=== PATIENT | male | born 1990 | race African-American/Black ===

== ENCOUNTER 2018-10-13 10:09 | Emergency (ER) | payer OTHER ==
[~2018-10-13] VITALS: Ht 172.7 cm; Wt 65.1 kg
[2018-10-13] MEDS ORDERED: KETOROLAC 30 MG/1 ML IM ONE (11:00)
--- NOTE | 2018-10-13 11:08 | NUR ---
PT TO ROOM FROM LOBBY, TO ED WITH BACK PAIN AFTER LIFTING CARSEAT OUT OF CAR, HAS HX OF LBP. PT PLACED ON MONITOR, CALL LIGHT WITHIN REACH
[2018-10-13] MEDS ORDERED: KETOROLAC 30 MG/1 ML ONE (11:15)
[2018-10-13 11:35] LABS: MICROSCOPIC NOT IND
[2018-10-13 11:37] LABS: CULTURE INDICATED? NO
[2018-10-13 12:10] VITALS: BP 115/50
== END 2018-10-13 12:26 | disposition home or self-care (01) ==
LOC: ED 12:08
DX: S29.012A Strain of muscle and tendon of back wall of thorax, initial encounter (principal); G40.909 Epilepsy, unspecified, not intractable, without status epilepticus; X58.XXXA Exposure to other specified factors, initial encounter; Y93.89 Activity, other specified; Y92.89 Other specified places as the place of occurrence of the external cause; Y99.8 Other external cause status
CPT/HCPCS: 71046; 81003; 93005; 96372; 99284; J1885

== ENCOUNTER 2019-04-18 16:31 | Emergency (ER) | payer OTHER ==
[~2019-04-18] VITALS: Ht 175.3 cm; Wt 66.7 kg
[2019-04-18 16:37] VITALS: BP 149/75
== END 2019-04-18 17:52 | disposition home or self-care (01) ==
LOC: ED 17:30
DX: M25.561 Pain in right knee (principal)
CPT/HCPCS: 99281

== ENCOUNTER 2019-09-02 08:22 | Emergency (ER) | payer OTHER ==
[~2019-09-02] VITALS: Ht 172.7 cm; Wt 67.4 kg
[2019-09-02 08:28] VITALS: BP 132/86
--- NOTE | 2019-09-02 09:45 | NUR ---
Patient given discharge instructions and they have confirmed that they understand the instructions. Patient ambulatory with steady gait.
== END 2019-09-02 09:44 | disposition home or self-care (01) ==
LOC: ED 08:54
DX: F41.1 Generalized anxiety disorder (principal); G40.909 Epilepsy, unspecified, not intractable, without status epilepticus
CPT/HCPCS: 71045; 93005; 99283